=== PATIENT | male | born 1975 | race Caucasian/White ===

== ENCOUNTER 2019-08-14 06:14 | Day surgery (SDC) | payer OTHER ==
[2019-08-12 16:31] VITALS: BMI 25.0
[~2019-08-14 06:14] MED LIST: DEXAMETHASONE SOD PHOSPHATE 10 MG/ML 1 ML VIAL IV ONE; HEPARIN SODIUM,PORCINE 5,000 UNIT/ML 1 ML VIAL SQ ONE; HYDROmorphone 0.5 MG/0.5 ML SYRINGE IVP PRN; LEVOFLOXACIN 500MG-D5W PMX 500 MG in DEXTROSE/WATER 1 100ML.BAG IVPB ONE; MIDAZOLAM 2 MG/2 ML VIAL IV PRN; ONDANSETRON 4 MG/2 ML VIAL IVP ONE; SCOPOLAMINE 1.5MG/72HR PATCH TRANSDERM ONE
[2019-08-14] MEDS: LACTATED RINGERS 1,000 ML IV SCH (07:02)
[2019-08-14] MEDS ORDERED: LIDOCAINE 1% 20 ML VIAL (10MG/ML) FOR IV START INTRADERMA ONE (07:02)
[2019-08-14 07:03] LABS: HCT 44.8 % (39.0-53.0); MCH 29.7 pg (25.0-35.0); MCHC 33.6 g/dL (31.0-37.0); MCV 88.6 fL (80.0-100.0); Mean Platelet Volume 7.6; Platelet Count 356 k/uL (150-450); RBC 5.05 m/uL (4.30-5.90); RDW 13.1 % (11.5-15.5); WBC 6.3 k/uL (3.8-10.6)
[2019-08-14] MEDS ORDERED: MIDAZOLAM 2 MG/2 ML VIAL IV ONE (07:13)
[2019-08-14] MEDS ORDERED: fentaNYL (PF) 50 MCG/ML 2 ML AMP IV ONE (07:14)
[2019-08-14] MEDS ORDERED: BUPIVACAIN-EPI 0.25%-1:200,000 30 ML VIAL SQ ONE ×2 (07:51→08:25)
[2019-08-14] MEDS ORDERED: NEOSTIGMINE 1 MG/ML 10 ML VIAL ONE (08:08)
[2019-08-14] MEDS ORDERED: GLYCOPYRROLATE 0.2 MG/ML 2 ML VIAL ONE (08:08)
[2019-08-14] MEDS ORDERED: fentaNYL (PF) 50 MCG/ML 2 ML AMP ONE (08:08)
[2019-08-14] MEDS ORDERED: PROPOFOL 10 MG/ML 20 ML VIAL IV ONE (08:08)
[2019-08-14] MEDS ORDERED: ROPIVACAINE 5 MG/ML 30 ML VIAL ONE (08:08)
[2019-08-14] MEDS ORDERED: DEXAMETHASONE SOD PHOSPHATE 4 MG/ML 1 ML VIAL ONE (08:08)
[2019-08-14] MEDS ORDERED: SUCCINYLCHOLINE CHLORIDE 100 MG/5 ML SYR IV ONE (08:08)
[2019-08-14] MEDS ORDERED: MIDAZOLAM 2 MG/2 ML VIAL ONE (08:08)
[2019-08-14] MEDS ORDERED: LIDOCAINE 1% INJ 10MG/ML (20 ML MDV) ONE (08:08)
[2019-08-14] MEDS ORDERED: ROCURONIUM BROMIDE 10 MG/ML 10 ML VIAL IV ONE (08:08)
[2019-08-14 09:05] VITALS: TEMP 97.1
--- NOTE | 2019-08-14 09:19 | P.ANPRN ---
Procedure Note - Anesthesia - Nerve Block Performed Bilateral Transversus Abdominis Single Time Out Performed: Yes ([id number]) Date of Procedure: 08/14/19 Procedure Start Time: 07:12 Procedure Stop Time: :21 Location of Patient: PreOp Indication: Acute Post-Operative Pain, Requested by Surgeon Specifically requested for management of pain by : Figueroa Stewart Sedation Type: Sedate with meaningful contact maintained Preparation: Sterile Prep, Sterile Dressing Position: Supine Catheter: None Needle Types: Pajunk Needle Gauge: 18 Ultrasound used to visualize needle placement: Yes Ultrasound used to observe medication spread: Yes Injectate: 0.5% Ropivacaine (see comment for volume) (Ropi 0.5% 15cc each side with Decadron 2mg each side) Blood Aspirated: No Pain Paresthesia on Injection Noted: No Resistance on Injection: Normal Image Stored and Saved: Yes Events: Uneventful and Well Tolerated
--- NOTE | 2019-08-14 09:30 | P.OP ---
Date of Procedure: 08/14/19 Preoperative Diagnosis: incarcerated left inguinal hernia Postoperative Diagnosis: incarcerated left inguinal hernia Procedure(s) Performed: laparoscopic robotic system repair of incarcerated left inguinal hernia Anesthesia: SERGIO Surgeon: Figueroa Stewart Pathology: none sent Condition: stable Disposition: PACU Description of Procedure: The patient's placed on the operating table in the supine position. The patient received general anesthesia. The patient's abdomen was prepped and draped in usual sterile fashion. The skin was anesthetized 1% local Xylocaine at the incision sites. Using an 11 blade a skin incision was made at the umbilicus. The fascia was grasped with a Vladimir and then the peritoneal cavity was entered with the Veress needle. Position of the Veress needle was confirmed with a positive drop test. After adequate insufflation a 5 mm trocar was placed into the peritoneal cavity. The Laparoscope was placed the peritoneal cavity. And a robotic 8 mm trocar was placed in the right lateral position and then another 8 mm robotic trochars placed in the left lateral position. The original 5 mm trocar was exchanged for a 12 mm trocar. The patient was placed in reverse Trendelenburg and then the patient was docked to the robot. Next the peritoneum over top of the hernia was incised and then using blunt and sharp dissection and electrocautery the hernia sac was dissected free from the floor of the inguinal canal. The hernia sac was completely reduced into the peritoneal cavity. And then using the Pro windows security analyst mesh the hernia was repaired. The peritoneum was then sutured with 20V lock suture. The patient was then undocked the robot. The needle was withdrawn from the peritoneal cavity. The umbilical trocar site was closed with 0 Ethibond suture. The skin was closed interrupted 3-0 Monocryl suture. Dermabond dressing was applied. Patient was sent to recovery in stable condition.
--- NOTE | 2019-08-14 09:33 | P.GSHP ---
History of Present Illness H&P Date: 08/14/19 Chief Complaint: incarcerated left inguinal hernia this a 44-year-old male incarcerated left femoral hernia. Patient presents today for laparoscopic robotic-assisted repair. Past Medical History Past Medical History: Osteoarthritis (OA) Additional Past Medical History / Comment(s): Arthritis in knees. Lt inguinal hernia. History of Any Multi-Drug Resistant Organisms: None Reported Past Surgical History: Appendectomy, Back Surgery, Orthopedic Surgery Additional Past Surgical History / Comment(s): Rt knee meniscus. Lipomas shoul allyn blades. Vasectomy. Laminectomy. Past Anesthesia/Blood Transfusion Reactions: No Reported Reaction Smoking Status: Current every day smoker - Past Family History Mother Family Medical History: COPD Medications and Allergies Home Medications Medication Instructions Recorded Confirmed Type Acetaminophen [Tylenol Arthritis] 650 mg PO DIRECTED PRN 08/12/19 08/14/19 History Docusate [Colace] 100 mg PO BID #20 capsule 08/14/19 Rx HYDROcodone/APAP 5-325MG [[place] 1 tab PO Q6HR PRN #10 tab 08/14/19 Rx 5-325] Allergies Allergy/AdvReac Type Severity Reaction Status Date / Time Penicillins Allergy Anaphylaxis Verified 08/14/19 06:44 Surgical - Exam Vital Signs Temp Pulse Resp BP Pulse Ox 97.5 F L 71 16 135/58 96 08/14/19 06:44 08/14/19 06:44 08/14/19 06:44 08/14/19 06:44 08/14/19 06:44 - General well developed, well nourished, no distress - Eyes PERRL - ENT normal pinna - Neck no masses - Respiratory normal expansion - Cardiovascular Rhythm: regular - Abdomen Abdomen: soft Hernia: inguinal (left incarcerated hernia) Results - Labs 08/14/19 06:53 Assessment and Plan Assessment: incarcerated left femoral hernia. We'll perform laparoscopic robotic-assisted repair.
[2019-08-14 09:37] VITALS: RESP 16
[2019-08-14 09:48] VITALS: BP 103/63; PULSE 83
[2019-08-14] MEDS ORDERED: ONDANSETRON 4 MG/2 ML VIAL IVP ONE (10:04)
[2019-08-14] MEDS ORDERED: CLINDAMYCIN 900 MG in DEXTROSE 5% IN WATER 50 ML IVPB ONE ×2 (11:00)
== END 2019-08-14 10:56 | disposition home or self-care (01) ==
LOC: OR 06:14
PROVIDERS: ATTEND Surgery
DX: K40.30 Unilateral inguinal hernia, with obstruction, without gangrene, not specified as recurrent (principal); F17.200 Nicotine dependence, unspecified, uncomplicated; M19.90 Unspecified osteoarthritis, unspecified site; Z88.0 Allergy status to penicillin; Z90.49 Acquired absence of other specified parts of digestive tract; Z98.52 Vasectomy status; Z83.6 Family history of other diseases of the respiratory system; Z79.899 Other long term (current) drug therapy
CPT/HCPCS: 64488; 85027; 49650; C1781; J2250; J1644; J1100 ×2; J2710; J2405; J1956; J2001; J3010; J2795; J0330; J2704; J1170

== ENCOUNTER 2024-03-13 21:36 | Emergency (ER) | payer OTHER ==
--- NOTE | 2024-03-13 21:48 | ED ---
Wound/Laceration HPI - General Stated Complaint: left finger injury Time Seen by Provider: 03/13/24 21:47 Source: patient, RN notes reviewed Mode of arrival: ambulatory Limitations: no limitations - History of Present Illness Initial Comments: 48-year-old male presented to ER with a chief complaint of a laceration. Patient was using scissors to open a children's toy and accidentally cut his left index finger. He is not currently on any blood thinners. He states bleeding has been unable to be controlled at home. Tetanus is unknown. No other injuries. - Related Data Home Medications Medication Instructions Recorded Confirmed Acetaminophen [Tylenol Arthritis] 650 mg PO DIRECTED PRN 08/12/19 08/14/19 Previous Rx's Medication Instructions Recorded Docusate [Colace] 100 mg PO BID #20 capsule 08/14/19 HYDROcodone/APAP 5-325MG [[place] 1 tab PO Q6HR PRN #10 tab 08/14/19 5-325] Allergies Allergy/AdvReac Type Severity Reaction Status Date / Time Penicillins Allergy Anaphylaxis Verified 03/13/24 22:26 Review of Systems ROS Statement: Those systems with pertinent positive or pertinent negative responses have been documented in the HPI. ROS Other: All systems not noted in ROS Statement are negative. Past Medical History Past Medical History: Osteoarthritis (OA) Additional Past Medical History / Comment(s): Arthritis in knees. Lt inguinal hernia. History of Any Multi-Drug Resistant Organisms: None Reported Past Surgical History: Appendectomy, Back Surgery, Orthopedic Surgery Additional Past Surgical History / Comment(s): Rt knee meniscus. Lipomas shoulder blades. Vasectomy. Laminectomy. Past Anesthesia/Blood Transfusion Reactions: No Reported Reaction Past Psychological History: No Psychological Hx Reported Past Alcohol Use History: None Reported Additional Past Alcohol Use History / Comment(s): Smokes 1 ppd, since 1988 Past Drug Use History: Marijuana Additional Drug Use History / Comment(s): Has Medical card, daily use - Past Family History Mother Family Medical History: COPD General Exam - General Exam Comments Initial Comments: Visual Physical Exam Vital signs reviewed General: Well-appearing, nontoxic, no acute distress. Head: Normocephalic, atraumatic Eyes: PERRLA, EOMI ENT: Airway patent Chest: Nonlabored breathing Skin: No visual rash, normal skin tone Neuro: Alert and oriented 3 Musculoskeletal: No gross abnormalities General appearance: alert, in no apparent distress Respiratory exam: Present: normal lung sounds bilaterally. Absent: respiratory distress, wheezes, rales, rhonchi, stridor Cardiovascular Exam: Present: regular rate, normal rhythm, normal heart sounds. Absent: systolic murmur, diastolic murmur, rubs, gallop, clicks Extremities exam: Present: normal inspection, full ROM, normal capillary refill, other (1 cm minimally active bleeding laceration to left second digit distal finger pad. 2+ left radial pulse. Sensation intact. Patient has full active range of motion.). Absent: tenderness, pedal edema, joint swelling, calf tenderness Skin exam: Present: warm, dry, intact, normal color. Absent: rash Course Vital Signs 03/13/24 22:24 Temperature 97.9 F Pulse Rate 71 Respiratory 18 Rate Blood Pressure 122/75 O2 Sat by Pulse 97 Oximetry Procedures - Laceration Laceration #1 Indication: laceration Site: hand Size (cm): 1 Description: linear Depth: simple, single layer Anesthetic Used: lidocaine 1% Anesthesia Technique: local infiltration Amount (mls): 1 Pre-repair: wound explored, irrigated extensively, deep structures intact Type of Sutures: nylon Size of Sutures: 4-0 Number of Sutures: 1 Technique: simple, interrupted Patient Tolerated Procedure: well Medical Decision Making - Medical Decision Making I performed the quick note portion of this chart. Electronically signed by Glilian Vizcarra PA-C Was pt. sent in by a medical professional or institution ([facility], INSTITUTIONAL RESEARCH DIRECTOR, urgent care, hospital, or retirement...) When possible be specific @ -No Did you speak to anyone other than the patient for history (EMS, parent, family, police, friend...)? What history was obtained from this source @ -No Did you review nursing and triage notes (agree or disagree)? Why? @ -I reviewed and agree with nursing and triage notes Were old charts reviewed (outside hosp., previous admission, EMS record, old EKG, old radiological studies, urgent care reports/EKG's, retirement records)? Report findings @ -No old charts were reviewed Differential Diagnosis (chest pain, altered mental status, abdominal pain women, abdominal pain men, vaginal bleeding, weakness, fever, dyspnea, syncope, headache, dizziness, GI bleed, back pain, seizure, CVA, palpatations, mental health, musculoskeletal)? @ -Laceration, abrasion, contusion, avulsion, foreign body this list is not meant to be all-inclusive EKG interpreted by me (3pts min.). @ -None X-rays interpreted by me (1pt min.). @ -Hand x-ray interpreted by me negative for acute process.] CT interpreted by me (1pt min.). @ -None done U/S interpreted by me (1pt. min.). @ -None done What testing was considered but not performed or refused? (CT, X-rays, U/S, labs)? Why? @ -None What meds were considered but not given or refused? Why? @ -None Did you discuss the management of the patient with other professionals (professionals i.e. , PA, INSTITUTIONAL RESEARCH DIRECTOR, lab, RT, psych nurse, secondary social studies teacher, minesweeping officer, teacher, command center officer, case monitor)? Give summary @ -No Was smoking cessation discussed for >3mins.? @ -No Was critical care preformed (if so, how long)? @ -No Were there social determinants of health that impacted care today? How? (Homelessness, low income, unemployed, alcoholism, drug addiction, transportation, low edu. Level, literacy, decrease access to med. care, senior care, rehab)? @ -No Was there de-escalation of care discussed even if they declined (Discuss DNR or withdrawal of care, Hospice)? DNR status @ -No What co-morbidities impacted this encounter? (DM, HTN, Smoking, COPD, CAD, Canc er, CVA, ARF, Chemo, Hep., AIDS, mental health diagnosis, sleep apnea, morbid obesity)? @ -None Was patient admitted / discharged? Hospital course, mention meds given and route, prescriptions, significant lab abnormalities, going to OR and other pertinent info. @ -Discharge 48-year-old male presented to ER with chief complaint of laceration. History and physical exam completed. Vitals stable. Exam remarkable for 1 cm laceration to left second digit finger pad. Minimal active bleeding. Left upper extremity neurovascular intact. X-rays obtained negative for acute process. Tetanus updated. Laceration closed, procedure note above. I advised removal in 10 to 14 days. Suture care and return parameters discussed. Patient discharged in stable condition. Patient verbally expressed understanding and agreed with care plan. Case discussed with ED attending, Dr. Tobar. Undiagnosed new problem with uncertain prognosis? @ -No Drug Therapy requiring intensive monitoring for toxicity (Heparin, Nitro, Insulin, Cardizem)? @ -No Were any procedures done? @ -Yes Diagnosis/symptom? @ -Laceration Acute, or Chronic, or Acute on Chronic? @ -Acute Uncomplicated (without systemic symptoms) or Complicated (systemic symptoms)? @ -Uncomplicated Side effects of treatment? @ -No Exacerbation, Progression, or Severe Exacerbation? @ -No Poses a threat to life or bodily function? How? (Chest pain, [place], MS, pneumonia, PE, COPD, DKA, ARF, appy, cholecystitis, CVA, Diverticulitis, Homicidal, Suicidal, threat to staff... and all critical care pts) @ -no - Radiology Data Radiology results: report reviewed, image reviewed Disposition Clinical Impression: Laceration Disposition: HOME SELF-CARE Condition: Stable Instructions (If sedation given, give patient instructions): Care For Your Stitches (DC) Additional Instructions: Have sutures removed in 10 to 14 days. Monitor for signs of infection including surrounding redness, purulent drainage or increasing swelling/pain. Keep area clean and dry. Return to the ER for any new or worsening concerns. Is patient prescribed a controlled substance at d/c from ED?: No Referrals: None,Stated [Primary Care Provider] - 1-2 days Forms: [facility] PCPs Time of Disposition: 23:10
--- NOTE | 2024-03-13 22:25 | XR ---
EXAMINATION TYPE: XR hand complete LT DATE OF EXAM: 03/13/2024 CLINICAL HISTORY: laceration index finger TECHNIQUE: Frontal, lateral and oblique images of the left hand are obtained. COMPARISON: None. FINDINGS: Overlying gauze or bandage material second digit. There is no acute fracture/dislocation ev ident in the left hand. The joint spaces in the left hand appear within normal limits. No suspicious radiodense soft tissue foreign body clearly seen. IMPRESSION: As above.
[2024-03-13 22:26] VITALS: RESP 18
[2024-03-13] MEDS: LIDOCAINE 1% INJ 10MG/ML (20 ML MDV) SQ ONE (23:20)
[2024-03-13] MEDS: DIPH,PERTUS(ACELL)TETVAC-LF 0.5 ML VIAL IM ONE (23:21)
[2024-03-13 23:49] VITALS: BP 125/77; PULSE 79; TEMP 98.1
== END 2024-03-13 23:48 | disposition home or self-care (01) ==
LOC: EC 21:36
DX: S61.211A Laceration without foreign body of left index finger without damage to nail, initial encounter (principal); Z88.0 Allergy status to penicillin; Z23 Encounter for immunization; W27.2XXA Contact with scissors, initial encounter
CPT/HCPCS: 73130; 90715; 99283; 90471; 12001; J2001